=== PATIENT | male | born 1985 | race Caucasian/White ===

== ENCOUNTER 2017-08-02 20:22 | Emergency (ER) | payer BC ==
[2017-08-02] MEDS ORDERED: Lidocaine 1% w/Epinephrine 1:100K 30 ML VIAL ONE (20:31)
[2017-08-02] MEDS ORDERED: Bacitracin Zinc 1 Packet ONE (21:37)
== END 2017-08-02 21:43 | disposition home or self-care (01) ==
LOC: SCSER 20:22
DX: S51.812A Laceration without foreign body of left forearm, initial encounter (principal); W27.8XXA Contact with other nonpowered hand tool, initial encounter
CPT/HCPCS: 12002; J2001